=== PATIENT | male | born 1975 | race Caucasian/White ===

== ENCOUNTER → 2022-11-03 07:22 | Outpatient (CLI) | payer OTHER | END | disposition home or self-care (01) | LOC: LAB 07:22 | DX: R79.9 Abnormal finding of blood chemistry, unspecified (principal); R79.89 Other specified abnormal findings of blood chemistry; E78.5 Hyperlipidemia, unspecified; E03.9 Hypothyroidism, unspecified; E55.9 Vitamin D deficiency, unspecified; E53.9 Vitamin B deficiency, unspecified; R73.03 Prediabetes; N39.0 Urinary tract infection, site not specified; R19.5 Other fecal abnormalities; N41.0 Acute prostatitis ==